=== PATIENT | male | born 1960 | race Caucasian/White ===

== ENCOUNTER 2016-10-14 10:42 | Day surgery (SDC) | payer OTHER ==
--- NOTE | 2016-10-13 08:03 | History and Physical ---
History & Physical Date Oct 13, 2016. 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, has T2 N0 lesion Additional History Hepatic Disease: No Endocrine Disorder: No Kidney Disease: No Hypertension: No Heart Disease: No Bleeding Tendencies: No Infectious Diseases: No Physical Examination Skin: warm/dry, no rash Eyes: normal inspection, EOMI, sclerae normal ENT: + pertinent finding (3 cm ulcerated firm lesion left retromolar trigone and buccal mucosa, trismus) Head: normocephalic, atraumatic Neck: supple, no adenopathy, trachea midline Respiratory/Chest: lungs clear, normal breath sounds, no respiratory distress Cardiovascular: regular rate, rhythm, no edema, no murmur Abdomen / GI: normal bowel sounds, non tender Back: normal inspection Extremities: normal inspection, normal range of motion Neurologic/Psych: no motor/sensory deficits, alert, normal reflexes, oriented x 3 Diagnosis T2N0 lesion left retromolar trigone Plan of Treatment direct laryngoscopy, esophagoscopy, bronchoscopy, biopsies
[2016-10-13 09:29] VITALS: BMI 37.0
--- NOTE | 2016-10-13 09:51 | PAT Medication Instructions ---
Service Date Oct 13, 2016. Current Home Medication List Multivitamin (Multivitamin), 1 TAB PO QAM Oxycodone/Acetaminophen 5MG/325MG (Percocet 5MG/325MG), 1 TABLET PO Q4H PRN for Pain Medication Instructions For Your Scheduled Surgery - Hold the following medications the morning of surgery: Multivitamin (Multivitamin), 1 TAB PO QAM - Take the following medications the morning of surgery with a sip of water OTHERWISE NOTHING TO EAT OR DRINK AFTER MIDNIGHT: Oxycodone/Acetaminophen 5MG/325MG (Percocet 5MG/325MG), 1 TABLET PO Q4H PRN for Pain (may take if needed up to 4 hours prior to surgery) - Take the following medications as scheduled the night before surgery: Oxycodone/Acetaminophen 5MG/325MG (Percocet 5MG/325MG), 1 TABLET PO Q4H PRN for Pain If you have any questions please call us at [phone] or [phone] or [phone]
[2016-10-13 10:28] LABS: BASO % 0.2 %; BASO ABS # 0.02 K/uL (0-0.2); COMPLETE YES; EOS % 1.9 %; HEMATOCRIT 43.4 % (42-52); IG% 0.4 %; LYMPH % 21.3 %; LYMPH ABS # 1.78 K/uL (1.2-3.4); MEAN CELL VOLUME 92.5 fL (80-100); MEAN CORPUSCULAR HGB CONC 34.6 g/dl (32-36); MEAN PLATELET VOLUME 8.7 fL (7.4-10.4); NEUT % 70.2 %; PLATELET COUNT 266 K/uL (130-400); RED BLOOD COUNT 4.69 M/uL (4.7-6.1); WHITE BLOOD COUNT 8.34 K/uL (4.8-10.8)
[2016-10-13 10:35] LABS: BUN/CREATININE RATIO 19.6 (10-20); CALCIUM 9.6 mg/dl (8.5-10.1); CREATININE 1.2 mg/dl (0.60-1.40); POTASSIUM 3.9 mmol/L (3.5-5.1)
[~2016-10-14] VITALS: Ht 175.3 cm; Wt 115.1 kg
[~2016-10-14 10:42] MED LIST: CEFAZOLIN 2000 MG/60 ML D5W IV SCH; LACTATED RINGER'S 1000ML 1,000 ML IV SCH; MULT-506 PO; OXYC-57 PO
[2016-10-14 11:15] VITALS: BP 151/76; PULSE 88; TEMP 37.5; O2SAT 94; Ht 175.3 cm; Wt 115.1 kg
--- NOTE | 2016-10-14 12:04 | History & Physical Bridge Note ---
H&P Re-Evaluation Bridge Note: I have examined the patient, reviewed the History & Physical and in the interval since the performance of the History & Physical I have noted the following changes of clinical significance: No changes noted
[2016-10-14] MEDS ORDERED: FENTANYL CITRATE INJ 50 MCG/1 ML 2 ML VIAL IV PRN (12:30)
[2016-10-14] MEDS ORDERED: EpHEDrine SULFATE INJ 50 MG/ML AMP IV PRN (12:30)
[2016-10-14] MEDS ORDERED: ATROPINE SULFATE 0.1 MG/ML 5ML SYR IV PRN (12:30)
[2016-10-14] MEDS ORDERED: ONDANSETRON INJ 2 MG/ML 2 ML VIAL IV PRN (12:30)
[2016-10-14] MEDS ORDERED: NEOSTIGMINE METHYLSULFATE 5 MG/5 ML SYR ONE (13:03)
[2016-10-14] MEDS ORDERED: PROPOFOL IV EMULSION 10 MG/ML 20 ML VIAL IV ONE (13:03)
[2016-10-14] MEDS ORDERED: MIDAZOLAM HCL 1 MG/ML 2ML VIAL ONE ×2 (13:03→14:41)
[2016-10-14] MEDS ORDERED: GLYCOPYRROLATE INJ 0.2 MG/ML VIAL ONE ×2 (13:03→15:22)
[2016-10-14] MEDS ORDERED: ROCURONIUM BROMIDE 10 MG/ML 5 ML VIAL ONE (13:03)
[2016-10-14] MEDS ORDERED: DEXAMETHASONE SOD INJ 4 MG/ML VIAL ONE (13:03)
[2016-10-14] MEDS ORDERED: FENTANYL CITRATE INJ 50 MCG/1 ML 2 ML VIAL ONE ×2 (13:03→14:14)
[2016-10-14] MEDS ORDERED: ONDANSETRON INJ 2 MG/ML 2 ML VIAL ONE (13:03)
[2016-10-14] MEDS ORDERED: LIDOCAINE HCL 2% 2 ML VIAL (20MG/ML) ONE (13:03)
[2016-10-14] MEDS ORDERED: SUCCINYLCHOLINE CHLORIDE 20 MG/ML 10 ML VIAL IV ONE (13:10)
[2016-10-14] MEDS ORDERED: EpINEphrine HCL INJ 1 MG/ML 5ML SYRINGE ONE (13:39)
[2016-10-14] MEDS ORDERED: LIDO 2%/EPINEPHRINE 1:100000 20 ML VIAL INFIL ONE (14:18)
[2016-10-14] MEDS ORDERED: LIDOCAINE 2%/EPINEPHRINE 1:100,000 1.8 ML CARTRIDGE ONE (14:18)
[2016-10-14] MEDS ORDERED: SODIUM CHLORIDE 0.9% 1000ML 1,000 ML IV SCH (14:32)
--- NOTE | 2016-10-14 14:36 | [facility] Operative Report ---
Operative Report Operative Date Oct 14, 2016. Pre-Operative Diagnosis T2N0 lesion left retromolar trigone Post-Operative Diagnosis T2N0 lesion left retromolar trigone Procedure(s) Performed Direct Laryngoscopy, Esophagoscopy and Flexible Bronchoscopy with bronchial washings incision Biopsy Left Buccal Mucosa Surgeon Dr Padilla Fleshing Machine Operator Surgeon(s) None Estimated Blood Loss 10cc Findings Large exophytic ulcerative lesion of the left buccal mucosa and the retromolar trigone Specimens Cytology - Sent with Desmond Alcaraz from respiratory to lab Left lower lobe bronchial washings Right lower lobe bronchial washings Pernament A. Left buccal mucosa Drains none Anesthesia Gen. endotracheal Complication(s) None Disposition Recovery Room / PACU Indications 56-year-old gentleman with long history of chewing snuff developed ulceration of the left buccal mucosa and retromolar trigone Description of Procedure The patient was brought to the operating room placed in the supine position. General endotracheal anesthesia was induced. Fiberoptic bronchoscopy was performed via the endotracheal tube. The rodney was sharp the trachea was clear the right and left mainstem bronchi were noted to be clear the peripheral bronchi were also visualized and noted to be clear. Left and then right bronchial washings were were performed and sent as specimen. Rigid esophagoscopy was performed visualizing the cervical and distal esophagus noting the mucosa to be pink with no other lesions. Laryngoscopy was performed with the Dedo laryngoscope noting the epiglottis vallecula and piriform sinus areas to be normal. The left buccal space was injected with 2% Xylocaine with 1 100,000 strength epinephrine. Incisional biopsy was performed using the tenotomy scissors excising a piece of the ulceration with the central exophytic necrotic area included in the specimen. A gauze sponge was packed into the buccal mucosa for hemostasis. The patient tolerated procedure well and was taken to the recovery area. I attest to the content of the Intraoperative Record and any orders documented therein. Any exceptions are noted below.
[2016-10-14] MEDS ORDERED: OXYC-57 PO (14:37)
--- NOTE | 2016-10-14 14:39 | Discharge Instructions ---
Discharge Instructions Date of Service Oct 14, 2016. Admission Reason for Admission: Left Retromolar Trigone Ulceration Discharge Discharge Diagnosis / Problem: T2 lesion of the left retromolar trigone and buccal mucosa Discharge Goals Goal(s): Diagnostic testing Activity Recommendations Activity Limitations: resume your previous activity . Current Hospital Diet Patient's current hospital diet: Discharge Diet Recommended Diet: Regular Diet Diet Texture: Dental Soft (bite-sized) Procedures Procedures Performed: Direct Laryngoscopy, Esophagoscopy and Flexible Bronchoscopy with bronchial washings incision Biopsy Left Buccal Mucosa Pending Studies Studies pending at discharge: yes List of pending studies: Biopsy of buccal mucosa Medical Emergencies . Who to Call and When: Medical Emergencies: If at any time you feel your situation is an emergency, please call 911 immediately. . Non-Emergent Contact Non-Emergency issues call your: Primary Care Provider . "Provider Documentation" section prepared by Shanta Padilla. . VTE Core Measure Inpt VTE Proph given/why not?: Treatment not indicated [place] Drug Monitoring Program Search Results: no issues identified
[2016-10-14] MEDS ORDERED: OXYCODONE/ACETAMINOPHEN 5-325 TAB PO PRN ×2 (14:45)
[2016-10-14] MEDS ORDERED: FLUMAZENIL 0.1 MG/1 ML 10 ML VIAL IV ONE (15:22)
[2016-10-14] MEDS ORDERED: LABETALOL HCL IV 5 MG/ML 20ML IV ONE (15:24)
[2016-10-14 16:08] VITALS: BP 113/56; PULSE 92; TEMP 37.4; O2SAT 93
--- NOTE | 2016-10-14 16:22 | Anesthesiology Progress Note ---
Anesthesia Post Op Note Date & Time Oct 14, 2016 at 16:22 Vital Signs Pain Intensity: 0 Vital Signs Past 12 Hours Date Time Temp Pulse Resp B/P (MAP) Pulse Ox O2 Delivery O2 Flow Rate FiO2 10/14/16 16:00 92 20 121/72 94 Nasal Cannula 3 10/14/16 15:55 36.7 92 20 127/66 94 Nasal Cannula 3 10/14/16 15:45 92 20 117/67 93 Nasal Cannula 3 10/14/16 15:35 91 20 132/72 96 Oxymask 10 10/14/16 15:25 36.8 92 18 131/85 96 Oxymask 10 10/14/16 11:15 37.5 88 18 151/76 (101) 94 Room Air Notes Mental Status: alert / awake / arousable, participated in evaluation Pt Amnestic to Procedure: Yes Nausea / Vomiting: adequately controlled Pain: adequately controlled Airway Patency, RR, SpO2: stable & adequate BP & HR: stable & adequate Hydration State: stable & adequate Anesthetic Complications: no major complications apparent
[2016-10-14 16:40] VITALS: BP 113/56; PULSE 98; TEMP 37.2; O2SAT 93
== END 2016-10-14 17:00 | disposition home or self-care (01) ==
LOC: C.ACU 10:42
PROVIDERS: ATTEND Otolaryngology
DX: C06.0 Malignant neoplasm of cheek mucosa (principal); Z87.891 Personal history of nicotine dependence

== ENCOUNTER → 2016-11-02 | Outpatient (CLI) | payer OTHER ==
[~2016-11-02] MED LIST changes: -CEFAZOLIN 2000 MG/60 ML D5W IV SCH; -LACTATED RINGER'S 1000ML 1,000 ML IV SCH
--- NOTE | 2016-11-02 11:14 | DIAGNOSTIC IMAGING REPORT ---
PET/CT CLINICAL HISTORY: 56-year-old male with history of malignant buccal mucosal neoplasm, invasive squamous cell carcinoma TECHNIQUE: PET/CT was performed from the base of the skull through the pelvis following the intravenous administration of 14.9 mCi of F18-FDG. Non-contrast CT imaging was performed over the same range without breath-hold for attenuation correction of PET images and anatomic correlation, but not for primary interpretation as it is not of standard diagnostic quality. CT DOSE: 1564.09. COMPARISON: None. FINDINGS: HEAD AND NECK: FDG avid abnormal soft tissue along the left body, angle, and ramus of the left mandible tracking deep to the left masseter and left pterygoid muscles (max SUV 8.1). Osseous erosion noted in this region with diffuse FDG avidity of the left mandible. This is in continuity with a focal FDG avid soft tissue mass anterior to the left mandibular body centered at the left buccal mucosa, measuring 2.5 cm in maximal dimension (max SUV 10.1). Metabolic activity also noted immediately inferior to the left angle the mandible, which appears to track along a fascial vein immediately adjacent to asymmetrically enlarged left submandibular lymph nodes. Evaluation for intravascular extension of disease is limited without intravenous contrast. The larger submandibular lymph node is mildly FDG avid (max SUV 4.5) with the more anterior lymph node demonstrating metabolic activity equivalent to the background. An additional metabolically active lymph node noted immediately superior to the cricoid cartilage and lateral to the medial margin of the common carotid artery (max SUV 3.8), measuring 7 mm in the short axis. CHEST: There is no FDG-avid disease in the chest. There is no axillary, mediastinal, or hilar lymphadenopathy. Multichamber enlargement of the heart. There is no pleural or pericardial effusion. There is no air-space disease or suspicious lung nodule. ABDOMEN/PELVIS: Below the diaphragm, tracer is distributed physiologically in the gastrointestinal and genitourinary tracts. There is no significant lymphadenopathy and no FDG-avid disease. MUSCULOSKELETAL: There is no FDG-avid or destructive bone lesion. IMPRESSION: 1. Initial PET/CT demonstrating FDG avid malignant soft tissue tracking along the left mandible diffusely invading the bone in continuity with a more superficial FDG avid left buccal mass. 2. Suspected metastatic involvement in a left submandibular lymph node (level 1B) and left lower cervical lymph node (level 4). 3. No other sites of metastatic disease. Electronically signed by: Rip Carias M.D. 11/02/2016 11:12 AM Dictated Date/Time: 11/02/2016 10:57 AM
== END | disposition home or self-care (01) ==
LOC: C.PET 07:49
PROVIDERS: ATTEND Otolaryngology
DX: C06.0 Malignant neoplasm of cheek mucosa (principal)